=== PATIENT | male | born 1975 | race Native Hawaiian/Other Pacific Islander ===

== ENCOUNTER 2023-01-19 10:56 | Emergency (ER) | payer OTHER, SELFPAY ==
[2023-01-19 11:31] VITALS: BP 160/91; PULSE 83; RESP 18; TEMP 36.4; O2SAT 98; BMI 34.0
--- NOTE | 2023-01-19 16:30 | ED_ITS ---
HPI - Abdominal Pain General Chief Complaint: Abdominal Pain Stated Complaint: Stomach pain Time Seen by Provider: 01/19/23 15:57 History of Present Illness HPI narrative: 47-year-old man presenting to the emergency department accompanied by spouse with complaint of left lower abdominal pain. Sharp. Drive over here hurt. This has been going on off for the last 6 months. They note that it began around that time and was evaluated in this emergency department. There were received a course of antibiotics this a seem to get better. Was treated for a potential urinary tract infection it is understood. There was no trauma history. Did begin having this pain though at left rib margin and seems to have slid down over time as mentioned. Somewhere in all of this he has torn a ?tendon? which might be hamstring in his left leg. He does sometimes feel pain a burning pain into the upper left thigh and down into the groin area. Family history of kidney stones. Unclear if it changes with tightness or looseness of his pants. He has lost some weight. No fever. No dysuria. No rash. Endorses later that he can feel much better if he is wearing looser boxer's particularly overnight. 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 On record review I am able to find note from October of 2021 with a diagnosis of balanitis and diverticulitis at least via physical exam though only diverticulosis on CT. No hernia was noted. Received a course of Augmentin and I believe Flagyl. Related Data Home Medications Medication Instructions Recorded Confirmed ibuprofen 200 mg tablet (Advil) 600 mg PO DAILY 01/19/23 01/19/23 Previous Rx's Medication Instructions Recorded gabapentin 300 mg capsule 300 mg PO TID #90 caps 01/19/23 hydrocodone 5 mg-acetaminophen 325 1 - 2 tab PO Q6H PRN pain #10 tabs 01/19/23 mg tablet Allergies Allergy/AdvReac Type Severity Reaction Status Date / Time No Known Drug Allergies Allergy Verified 01/19/23 11:30 Review of Systems Status of ROS Reports: 10 or more systems reviewed and unremarkable except as noted in History and below PFSH PFSH Social History Smoking Status: Never smoker Do you use any of these nicotine containing products: None Second hand tobacco smoke exposure: No How often do you have a drink containing alcohol: never How often do you have six or more drinks on one occasion: Never AUDIT-C Alcohol total score: 0 Non-prescribed substance use: denies use service: No Exam Narrative: Exam Narrative: Pleasant. NAD. Overweight. Skin is warm and dry without rash. Breathing easily. Lungs are clear. Heart with regular rate and rhythm without murmur rub or gallop. Abdomen is overweight soft. No masses. Area of soreness indicated is the left inguinal but also the left upper thigh. Vaguely reproducible to palpation of inguinal area. I do not appreciate any lymphadenopathy nor defects or swellings. Genitourinary exam is without inflammatory changes in the lesions. No palpable hernia. Rotation of the hip does not reliably reproduce pain. Pain is still present in the far left low abdomen as well when abdominal wall m usculature is tense. He has not actually sore to palpation of the hip flexors are insertions. No pain to palpation of the back. Well perfused peripherally without edema. Const: Vital Signs, click to edit/add: Vital Signs - 24 hr 01/19/23 11:31 Temperature 97.6 F Pulse Rate [Right Pulse Oximeter] 83 Respiratory Rate 18 Blood Pressure [Ri ght Upper Arm] 160/91 H Pulse Oximetry 98 Oxygen Delivery Me thod Room Air Documenting provider has reviewed patient's vital signs: yes Course Vital Signs Vital signs: Initial Vital Signs Temperature 97.6 F 01/19/23 11:31 Temperature Source Temporal Artery Scan 01/19/23 11:31 Pulse Rate 83 01/19/23 11:31 Respiratory Rate 18 01/19/23 11:31 Blood Pressure 160/91 H 01/19/23 11:31 Blood Pressure Mean 114 01/19/23 11:31 Blood Pressure Position Sitting 01/19/23 11:31 Pulse Oximetry 98 01/19/23 11:31 Oxygen Delivery Method 01/19/23 11:31 Vital Signs Temperature 97.6 F 01/19/23 11:31 Pulse Rate 83 01/19/23 11:31 Respiratory Rate 18 01/19/23 11:31 Blood Pressure 160/91 H 01/19/23 11:31 Pulse Oximetry 98 01/19/23 11:31 Oxygen Delivery Method 01/19/23 11:31 Temperature 97.6 F 02/25/23 11:31 Pulse Rate 83 01/19/23 11:31 Respiratory Rate 18 01/19/23 11:31 Blood Pressure 160/91 H 01/19/23 11:31 Pulse Oximetry 98 01/19/23 11:31 Oxygen Delivery Method 01/19/23 11:31 MDM - Abdominal Pain MDM Narrative Medical decision making narrative: Differential include diverticulitis, inguinal strain or hernia, meralgia paresthetica, inguinal nerve entrapment, radicular hip pain, radicular back pain. Undiagnosed post herpetic neuralgia perhaps. Cystitis rather urinary tract infection, kidney/ureteral stones. Will do screening labs. Labs were wholly unremarkable so I think likely intra-abdominal pathology in addition to duration of illness. Outpatient follow-up discussed. See patient discharge plan Lab Data Attestation: I reviewed the patient's lab results. Labs: Lab Results 01/19/23 01/19/23 Range/Units 16:58 17:10 WBC 5.00 (4.50-11.00) K/uL RBC 5.53 (4.30-5.90) m/uL Hgb 15.4 (13.5-17.5) gm/dL Hct 45.2 (37.0-53.0) % MCV 82 (80-100) fL MCH 28 (26-34) pg MCHC 34 (32-36) gm/dL RDW Coeff of [place] 12.5 (11.5-15.5) % Plt Count 283 (140-440) K/uL Neut % (Auto) 59.8 (42.0-72.0) % Lymph % (Auto) 31.0 (20-44) % [place] % (Auto) 7.4 (0.0-11.0) % Eos % (Auto) 1.2 (0.0-7.0) % Baso % (Auto) 0.6 (0.0-3.0) % Neut # (Auto) 2.99 (1.7-7.0) K/uL Lymph # (Auto) 1.55 (0.90-2.90) K/uL [place] # (Auto) 0.40 (0.00-0.90) K/UL Eos # (Auto) 0.06 (0.00-0.50) K/uL Baso # (Auto) 0.03 (0.00-0.30) K/uL Urine Color Yellow (Yellow) Urine Appearance Clear (Clear) Urine pH 5.5 (5.0-8.5) Ur Specific [place] 1.025 (1.000-1.030) Urine Protein Negative (Negative) Urine Glucose (UA) Negative (Negative) Urine Ketones Negative (Negative) Urine Blood Negative (Negative) Urine Nitrite Negative (Negative) Urine Bilirubin Negative (Negative) Urine Urobilinogen 0.2 (0.2-1.0) Ur Leukocyte Esterase Negative (Negative) Urine RBC 0-2 (0-2) Urine WBC 0-2 (0-5) Ur Squamous Epith Cells None (None-Few) Urine Bacteria None (None) Discharge Plan Discharge Clinical Impression: Left inguinal pain Patient Disposition: Home w/ Parent or Adult Condition: Stable Additional Instructions: One of the things I would consider for a differential for you is meralgia paresthetica. Also ileal inguinal nerve entrapment. I will call you if your CBC or urine is positive and treat those accordingly. Otherwise if considering a nerve issue, gabapentin can be helpful in decreasing nerve irritability and therefore pain; something you would typically take regularly. Also opiates can be helpful when things get really bad. I would consider for the time being taking some ibuprofen regularly maybe 600 mg 3 times a day with a little food; alternative to this would be up to 500 mg naproxen 2 times daily. You could combine either with acetaminophen up to 1000 mg per dose. Remember that each tablet of [place] has 325 mg of acetaminophen. I would though schedule follow-up with your primary care provider to review these things further. Return otherwise for uncontrolled pain, associated fever. Prescriptions: New gabapentin 300 mg capsule 300 mg PO TID Qty: 90 2RF hydrocodone-acetaminophen 5-325 mg tablet 1 - 2 tab PO Q6H PRN (Reason: pain) Qty: 10 0RF No Action ibuprofen [Advil] 200 mg tablet 600 mg PO DAILY Follow Up/Referrals: Kendall Jane MD [Primary Care Provider] - Stand Alone Forms: [facility] Info Instructions
[2023-01-19 17:18] LABS: Basophils Absolute Auto 0.03 K/uL (0.00-0.30); Basophils Percent Auto 0.6 % (0.0-3.0); Eosinophils Absolute Auto 0.06 K/uL (0.00-0.50); Eosinophils Percent Auto 1.2 % (0.0-7.0); Hematocrit 45.2 % (37.0-53.0); Hemoglobin* 15.4 gm/dL (13.5-17.5); Lymphocytes Absolute Auto 1.55 K/uL (0.90-2.90); Mean Corpuscular HGB Conc 34 gm/dL (32-36); Mean Corpuscular Hemoglobin 28 pg (26-34); Mean Corpuscular Volume 82 fL (80-100); Monocytes Percent Auto 7.4 % (0.0-11.0); Neutrophils Absolute Auto 2.99 K/uL (1.7-7.0); Neutrophils Percent Auto 59.8 % (42.0-72.0); Platelet Count* 283 K/uL (140-440); RDW Coefficient of Variation % 12.5 % (11.5-15.5); Red Blood Count 5.53 m/uL (4.30-5.90)
[2023-01-19 17:18] LABS: Appearance Urine Clear (Clear); Bilirubin Urine Negative (Negative); Blood Urine Negative (Negative); Color Urine Yellow (Yellow); Glucose Urine Negative (Negative); Ketones Urine Negative (Negative); Leukocyte Esterase Urine Negative (Negative); Nitrite Urine Negative (Negative); Protein Urine Negative (Negative); Specific Gravity Urine 1.025 (1.000-1.030); Urobilinogen Urine 0.2 (0.2-1.0); pH Urine 5.5 (5.0-8.5)
[2023-01-19 17:26] LABS: RBC Urine 0-2 (0-2); WBC Urine 0-2 (0-5)
[2023-01-19 17:27] LABS: Slide Review Reflex No
== END 2023-01-19 17:17 | disposition home or self-care (01) ==
PROVIDERS: Emergency Provider Family Medicine; PCP Family Medicine
DX: R10.32 Left lower quadrant pain (principal)
CPT/HCPCS: 36415; 81001; 85025; 99283; 99284